=== PATIENT | male | born 1960 | race Caucasian/White ===

== ENCOUNTER 2022-08-01 06:23 | Day surgery (SDC) | payer MEDICAID ==
[2022-08-01] MEDS ORDERED: Bupivacaine 0.5% 50 ML MDV ONE (06:33)
[2022-08-01] MEDS ORDERED: Nozin Nasal Sanitizer NASBOTH ONE (07:00)
[2022-08-01] MEDS ORDERED: Lactated Ringers 1,000 ML IV SCH (07:00)
[2022-08-01] MEDS ORDERED: Nozin Nasal Sanitizer NASBOTH SCH (07:00)
[2022-08-01 07:14] LABS: ESTIMATED GFR 96 mL/min (>60)
[2022-08-01] MEDS ORDERED: Ondansetron 4 MG/2 ML SDV ONE (07:19)
[2022-08-01] MEDS ORDERED: fentaNYL 250 MCG/5 ML SDV ONE (07:19)
[2022-08-01] MEDS ORDERED: Glycopyrrolate 0.2 MG/ML 5 ML MDV ONE (07:19)
[2022-08-01] MEDS ORDERED: Dexamethasone 4 MG/ML SDV ONE (07:19)
[2022-08-01] MEDS ORDERED: Rocuronium 50 MG/5 ML Vial ONE ×2 (07:19→09:50)
[2022-08-01] MEDS ORDERED: Neostigmine Methylsulfate 1 MG/ML 5 ML Syringe ONE (07:19)
[2022-08-01] MEDS ORDERED: Propofol 200 MG/20 ML SDV ONE (07:19)
[2022-08-01] MEDS ORDERED: ceFAZolin 2 GM in Premix Bag 1 BAG IV ONE (08:00)
[2022-08-01] MEDS ORDERED: Sodium Chloride 0.9% 10 ML ONE (09:00)
[2022-08-01] MEDS ORDERED: ePHEDrine 50 MG/ML SDV ONE (09:00)
[2022-08-01] MEDS ORDERED: Lactated Ringers 1,000 ML ONE (10:18)
[2022-08-01] MEDS ORDERED: fentaNYL 100 MCG/2 ML SDV ONE ×2 (11:18→11:24)
[2022-08-01] MEDS ORDERED: Ondansetron 4 MG/2 ML SDV IVPUSH PRN (15:04)
== END 2022-08-01 16:55 | disposition home or self-care (01) ==
LOC: JP.SDS 06:23
PROVIDERS: ATTEND Specialist
DX: M19.011 Primary osteoarthritis, right shoulder (principal); M25.711 Osteophyte, right shoulder; K21.9 Gastro-esophageal reflux disease without esophagitis; Z79.899 Other long term (current) drug therapy; Z20.822 Contact with and (suspected) exposure to COVID-19
CPT/HCPCS: 23470; 36415; 64415; 73020; 80053; 85025; 87635; A9270; C1713; C1776; J0690; J1100; J2405; J2704; J2710; J3010; J3490; J7120; U0002

== ENCOUNTER 2023-11-23 14:46 | Emergency (ER) | payer MEDICAID ==
[2023-11-23 15:40] LABS: APPEARANCE,URINE CLOUDY (CLEAR); BILIRUBIN,URINE SMALL (NEGATIVE); COLOR,URINE YELLOW (YELLOW); GLUCOSE,URINE NEGATIVE (NEGATIVE); KETONES,URINE 15 mg/dL (NEGATIVE); LEUKOCYTE ESTERASE,URINE TRACE (NEGATIVE); NITRITE,URINE NEGATIVE (NEGATIVE); OCCULT BLOOD,URINE LARGE (NEGATIVE); PROTEIN,URINE 100 mg/dL (NEGATIVE)
[2023-11-23] MEDS ORDERED: Ketorolac 30 MG/ML SDV IVPUSH ONE (15:43)
[2023-11-23 15:50] LABS: AMORPHOUS SEDIMENT,URINE NOT SEEN; BACTERIA,URINE MODERATE; EPITHELIAL CELLS,URINE RARE; MUCUS,URINE MODERATE; RBC,URINE PACKED (0-5); WBC,URINE 20-30 (0-5)
[2023-11-23] MEDS: Sodium Chloride 0.9% 1,000 ML IV ONE (16:09)
[2023-11-23 17:58] LABS: BASOPHILS ABSOLUTE AUTO 0.03 K/uL (0.00-0.10); BASOPHILS PERCENT AUTO 0.4 % (0.1-1.3); EOSINOPHILS ABSOLUTE AUTO 0.04 K/uL (0.00-0.40); EOSINOPHILS PERCENT AUTO 0.5 % (0.0-5.4); HEMATOCRIT 41.8 % (38.4-49.7); HEMOGLOBIN 14.3 g/dL (12.9-16.9); IMMATURE GRAN PERCENT AUTO 0.2 % (0.0-0.7); LYMPHOCYTES ABSOLUTE AUTO 0.99 K/uL (0.8-3.3); LYMPHOCYTES PERCENT AUTO 12.1 % (11.4-47.7); MEAN CORPUSCULAR HEMOGLOBIN 30.2 pg (31.6-35.5); MEAN CORPUSCULAR HGB CONC 34.2 g/dL (31.6-35.5); MEAN CORPUSCULAR VOLUME 88.2 fL (81.4-99.0); MONOCYTES ABSOLUTE AUTO 0.46 K/uL (0.20-0.90); MONOCYTES PERCENT AUTO 5.6 % (3.3-12.6); NEUTROPHILS ABSOLUTE AUTO 6.61 K/uL (1.0-7.6); NEUTROPHILS PERCENT AUTO 81.2 % (40.0-78.1); PLATELET COUNT,PLT 135 K/uL (130-375); RED BLOOD CELL COUNT 4.74 M/uL (4.14-5.76); WHITE BLOOD CELL COUNT,WBC 8.2 K/uL (3.2-11.0)
[2023-11-23 17:59] LABS: IMMATURE GRAN ABSOLUTE AUTO 0.02 K/uL (0.00-0.23)
[2023-11-23 18:11] LABS: ANION GAP 12.1 mmol/L (5.0-14.0); CALCIUM 8.3 mg/dL (8.5-10.1); CREATININE 1.1 mg/dL (0.8-1.3); EST CRCL DRUG DOSING (CG) 61.22 mL/min; POTASSIUM,K 4.1 mmol/L (3.6-5.2)
== END 2023-11-23 19:13 | disposition home or self-care (01) ==
LOC: JP.ED 14:46
DX: N13.2 Hydronephrosis with renal and ureteral calculous obstruction (principal); Z86.16 Personal history of COVID-19; Z88.5 Allergy status to narcotic agent
CPT/HCPCS: 36415; 74176; 80048; 81001; 85025; 87086; 96360; 99284; J7030